=== PATIENT | female | born 1985 | race Two or more races ===

== ENCOUNTER 2022-03-16 15:52 | Emergency (ER) | payer OTHER ==
[~2022-03-16] VITALS: Ht 165.1 cm; Wt 56.7 kg
[2022-03-16 16:02] VITALS: BP 118/79
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
--- NOTE | 2022-03-16 16:11 | NUR ---
PATIENT SIGNED WAIVER TO OBTAIN X-RAY
--- NOTE | 2022-03-16 16:40 | NUR ---
Patient discharged to home in stable condition. Written and verbal after care instructions given. Patient verbalizes understanding of instruction.
== END 2022-03-16 16:40 | disposition home or self-care (01) ==
LOC: ER 16:00
DX: S60.221A Contusion of right hand, initial encounter (principal); W20.8XXA Other cause of strike by thrown, projected or falling object, initial encounter; Y93.89 Activity, other specified; Y92.89 Other specified places as the place of occurrence of the external cause; Y99.8 Other external cause status
CPT/HCPCS: 73130-TC

== ENCOUNTER 2022-04-17 15:08 | Emergency (ER) | payer OTHER ==
[~2022-04-17] VITALS: Ht 165.1 cm; Wt 66.7 kg
[2022-04-17] MEDS ORDERED: FAMOTIDINE/PF INJ 20 MG/2 ML VIAL IV ONE ×2 (15:30→15:33)
[2022-04-17] MEDS ORDERED: ONDANSETRON HCL/PF 4 MG/2 ML VIAL IVP ONE (15:30)
--- NOTE | 2022-04-17 15:30 | NUR ---
PT W/ C/O UPPER ABDOMINAL PAIN, DULL IN CHARACTERISTIC, +NAUSEA X2 WEEKS, STATES THAT IT IS WORST TODAY. PT A/O X4, AMBULATORY. TO ER BED 3.
[2022-04-17] MEDS ORDERED: ONDANSETRON HCL/PF 4 MG/2 ML VIAL ONE (15:33)
--- NOTE | 2022-04-17 15:39 | NUR ---
ULTRASOUND AT BEDSIDE
--- NOTE | 2022-04-17 15:41 | NUR ---
IV ESTABLIHSED L AC 20G. LABS DRAWN AND COLLECTED AT BEDSIDE
--- NOTE | 2022-04-17 15:54 | NUR ---
URINE COLLECTED AND SENT
[2022-04-17] MEDS ORDERED: MAG HYDROX/AL HYDROX/SIMETH 30 ML UDC PO ONE (16:30)
[2022-04-17] MEDS ORDERED: LIDOCAINE VISCOUS 2% UD 15 ML UDC MM ONE (16:30)
[2022-04-17 16:31] LABS: BASOPHILS % (AUTO) 0.3 % (0.0-2.0); EOSINOPHILS % (AUTO) 3.8 % (0.0-6.0); HEMATOCRIT 41 % (33-45); HEMOGLOBIN 13.2 g/dL (11.5-14.8); LYMPHOCYTES # (AUTO) 2.1 K/uL (0.8-4.8); LYMPHOCYTES % (AUTO) 23.5 % (20.0-44.0); MEAN CORPUSCULAR HGB CONC 32 g/dl (31.0-36.0); MEAN CORPUSCULAR VOLUME 82 fL (82-100); MONOCYTES # (AUTO) 0.6 K/uL (0.1-1.30); MONOCYTES % (AUTO) 6.5 % (2.0-12.0); NEUTROPHILS % (AUTO) 65.9 % (43.0-81.0); PLATELET COUNT (AUTO) 306 K/uL (150-450); RED BLOOD CELL COUNT(AUTO) 4.92 MIL/uL (4.0-5.2)
[2022-04-17 16:36] LABS: BILIRUBIN,URINE NEGATIVE (NEGATIVE); COLOR,URINE YELLOW (YELLOW); LEUKOCYTE ESTERASE ,URINE NEGATIVE (NEGATIVE); NITRITE, URINE NEGATIVE (NEGATIVE); PROTEIN,URINE NEGATIVE (NEGATIVE); UGLUCOSE NEGATIVE (NEGATIVE); UROBILINOGEN,URINE 0.2 EU/dL (0.2)
[2022-04-17 16:40] LABS: WBC,URINE 0-2 /HPF (0-3)
[2022-04-17 16:41] LABS: BACTERIA,URINE Rare /HPF (None Seen); SQUAMOUS EPITHELIAL CELL,UR Few /HPF (None Seen)
[2022-04-17] MEDS ORDERED: MAG HYDROX/AL HYDROX/SIMETH 30 ML UDC ONE (16:52)
[2022-04-17] MEDS ORDERED: LIDOCAINE VISCOUS 2% UD 15 ML UDC ONE (16:52)
[2022-04-17] MEDS ORDERED: OMEP20CA15 PO (17:04)
[2022-04-17 17:29] LABS: CALCIUM, SERUM 9.1 mg/dL (8.5-10.1); CREATININE 0.8 mg/dL (0.6-1.3); POTASSIUM 3.7 mmol/L (3.5-5.1)
[2022-04-17 17:37] LABS: ALBUMIN 3.6 g/dL (3.4-5.0); BILIRUBIN,DIRECT 0.1 mg/dL (0.0-0.2); BILIRUBIN,TOTAL 0.3 mg/dL (0.2-1.0); TOTAL PROTEIN, SERUM 8.5 g/dL (6.4-8.2)
[2022-04-17 17:51] VITALS: BP 122/70
--- NOTE | 2022-04-17 17:52 | NUR ---
IV removed. Catheter intact and site benign. Pressure and 4x4 applied to site. No bleeding noted.
--- NOTE | 2022-04-17 17:52 | NUR ---
Patient discharged to home in stable condition. Written and verbal after care instructions given. Patient verbalizes understanding of instruction.
== END 2022-04-17 17:52 | disposition home or self-care (01) ==
LOC: ER 15:17
DX: R10.13 Epigastric pain (principal); Z79.899 Other long term (current) drug therapy
CPT/HCPCS: 99284; 96374; 76700; 96375; 85025; 80048; 83690; 80076; 84703; 81001; 36415; J3490; J2405

== ENCOUNTER 2024-04-23 09:35 | Emergency (ER) | payer OTHER ==
[~2024-04-23] VITALS: Ht 165.1 cm; Wt 56.7 kg
[~2024-04-23 09:35] MED LIST: OMEP20CA15 PO
[2024-04-23 09:47] VITALS: BP 114/73; TEMP 98.2; O2SAT 100
[2024-04-23] MEDS ORDERED: BENZOIN COMPOUND TINCT 60 ML BOTTLE ONE (09:56)
[2024-04-23] MEDS: BACI/NEOM/POLY B OINT PKT 1 UDPKT PACKET TP ONE (09:58)
== END 2024-04-23 10:44 | disposition home or self-care (01) ==
LOC: ER 09:43
DX: S61.011A Laceration without foreign body of right thumb without damage to nail, initial encounter (principal); W26.0XXA Contact with knife, initial encounter; Y93.89 Activity, other specified; Y92.090 Kitchen in other non-institutional residence as the place of occurrence of the external cause; Y99.8 Other external cause status

== ENCOUNTER 2025-05-06 07:11 | Emergency (ER) | payer OTHER ==
[~2025-05-06] VITALS: Ht 165.1 cm; Wt 67.6 kg
[2025-05-06] MEDS: IV NS 0.9% 1,000 ML BAG IV ONE (07:59)
[2025-05-06 08:19] LABS: PLATELET COUNT (AUTO) 270 K/uL (150-450); RED BLOOD CELL COUNT(AUTO) 4.61 MIL/uL (4.0-5.2); RED CELL DISTRIBUTION WIDTH 14.7 % (11.5-15.0); WHITE BLOOD COUNT (AUTO) 10.7 K/uL (4.3-11.0)
[2025-05-06 08:33] LABS: CALCIUM, SERUM 8.5 mg/dL (8.5-10.1); CREATININE 0.5 mg/dL (0.6-1.3); SODIUM SERUM 133.0 mmol/L (136-145); UREA NITROGEN, BLOOD 10.0 mg/dL (7-18)
[2025-05-06 08:48] LABS: APPEARANCE,URINE CLEAR (CLEAR); BLOOD, URINE TRACE-INTA Ery/uL (NEGATIVE); LEUKOCYTE ESTERASE ,URINE NEGATIVE (NEGATIVE); NITRITE, URINE NEGATIVE (NEGATIVE); UGLUCOSE NEGATIVE (NEGATIVE)
[2025-05-06 09:03] LABS: ASPARTATE AMINOTRANSFERASE 20.0 U/L (15-37)
[2025-05-06 09:04] LABS: TOTAL PROTEIN, SERUM 7.4 g/dL (6.4-8.2)
[2025-05-06 09:12] LABS: ADD URINE CULTURE YES; SQUAMOUS EPITHELIAL CELL,UR Many /HPF (None Seen)
[2025-05-06] MEDS ORDERED: CEPH-570 PO (09:25)
[2025-05-06 09:52] LABS: PREGNANCY TEST SERUM QUAN 41878.0 mIU/mL (0-6)
[2025-05-06 10:46] VITALS: BP 109/81; TEMP 98.6; O2SAT 98
== END 2025-05-06 10:47 | disposition home or self-care (01) ==
LOC: ER 07:18
DX: O26.892 Other specified pregnancy related conditions, second trimester (principal); O23.42 Unspecified infection of urinary tract in pregnancy, second trimester; R10.2 Pelvic and perineal pain; Z79.899 Other long term (current) drug therapy; Z3A.18 18 weeks gestation of pregnancy
CPT/HCPCS: 99284; 96360; 76805; 85025; 80048; 87086; 80076; 81001; 36415; 84702; J7030